=== PATIENT | male | born 1940 | race American Indian/Alaskan Native ===

== ENCOUNTER 2016-09-06 10:26 | Outpatient (CLI) | payer MEDICARE, BC ==
--- NOTE | 2016-09-06 14:14 | Ultrasound Report ---
ULTRASOUND RENAL BILATERAL HISTORY: Renal insufficiency. TECHNIQUE: transabdominal ultrasound with color Doppler interrogation. FINDINGS: The right kidney measures 9.7 x 4.5 x 5.0cm. Right renal cortex: 1.3cm. The left kidney measures 10.5 x 5.2 x 4.9cm. Left renal cortex: 1.4cm. The kidneys are normal size, contour and position. There is increased renal parenchymal echotexture bilaterally. Corticomedullary differentiation is preserved. A 2.7 x 2.4 cm simple cyst is noted in the inferior left kidney. No evidence for nephrolithiasis, mass, hydronephrosis or perinephric fluid. The views of the bladder and the region of the ureters appear normal. IMPRESSION: Renal parenchymal disease. 2.7 cm simple cyst in the left kidney.
== END 2016-09-06 10:27 | disposition home or self-care (01) ==
LOC: US 10:26
PROVIDERS: ATTEND Internal Medicine
DX: N28.1 Cyst of kidney, acquired (principal); N28.89 Other specified disorders of kidney and ureter
CPT/HCPCS: 76770

== ENCOUNTER 2017-06-03 17:30 | Outpatient (CLI) | payer MEDICARE ==
--- NOTE | 2017-06-03 20:19 | Cat Scan Report ---
FINAL REPORT PROCEDURE: CT ABDOMEN WO CON TECHNIQUE: Computerized axial tomography of the abdomen was performed without intravenous contrast. This study is performed without intravascular contrast material and its sensitivity for abdominal and pelvic pathology, including neoplasms, inflammation, abscess, free fluid, thrombosis, arterial dissection and infarction, is reduced compared with a contrast enhanced study. HISTORY: EVAL FOR RENAL COMPARISON: No prior studies are available for comparison. FINDINGS: Liver, spleen, pancreas and adrenal glands are within normal limits. Right kidney is unremarkable. A well-defined cystic lesion is noted involving the lower portion left kidney measuring 2.2 x 2.9 centimeters extending into the renal sinus. No renal calculi or hydronephrosis noted. Aorta is of normal caliber. There is no free fluid or free air. Gallbladder is unremarkable. Small bowel loops are within normal limits. Multiple colonic diverticula are noted without evidence of diverticulitis. Mild degree residual stool is noted. Appendix is normal. A small hiatal hernia is identified. A small fat containing uncomplicated supraumbilical hernia is identified measuring 2.3 centimeters. Moderate degree degenerative changes are noted involving the lumbar spine.. IMPRESSION: Impression No acute intra-abdominal pathology is identified as visualized on this noncontrast study. Mild degree residual stool Small hiatal hernia A well-defined cystic lesion of left kidney cannot be further evaluated on this noncontrast study.
== END 2017-06-03 17:31 | disposition home or self-care (01) ==
LOC: CT 17:30
PROVIDERS: ATTEND Internal Medicine Nephrology
DX: N28.1 Cyst of kidney, acquired (principal); K57.30 Diverticulosis of large intestine without perforation or abscess without bleeding; N28.89 Other specified disorders of kidney and ureter; K44.9 Diaphragmatic hernia without obstruction or gangrene; K42.9 Umbilical hernia without obstruction or gangrene; M47.896 Other spondylosis, lumbar region
CPT/HCPCS: 74150

== ENCOUNTER 2019-09-12 09:34 | Outpatient (CLI) | payer MEDICARE ==
--- NOTE | 2019-09-12 10:56 | Ultrasound Report ---
RENAL ULTRASOUND HISTORY: ABNORMAL RESULTS OF KIDNEY. Renal Insufficiency. COMPARISON: 09/06/2016 TECHNIQUE: Multiple real-time ultrasonographic grayscale images were obtained of the kidneys and urin marce bladder. FINDINGS: Right kidney: Moderate increased echogenicity of the kidney but no increase compared to the last exam . No hydronephrosis. Kidney measures 8.5 cm. Left kidney: Moderate increased echogenicity of the kidney but no increase compared to the last exam. A lower pole cyst measures 2.8 x 2.8 x 2.6 cm. Kidney measures 9.4 cm. Urinary bladder: No significant abnormality. Additional findings: None. IMPRESSION: 1. Bilateral medical renal disease. 2. No hydronephrosis. 3. A benign 2.8 cm left lower pole renal cyst. Signer Name: Rickie Mcmillan MD Signed: 09/12/2019 10:52 AM Workstation Name: [id number]
--- NOTE | 2019-09-12 10:59 | Ultrasound Report ---
URINARY BLADDER ULTRASOUND HISTORY: ABNORMAL KIDNEY FUNCTION COMPARISON: None. TECHNIQUE: Multiple real-time ultrasonographic grayscale images were obtained of the kidneys and urin marce bladder. FINDINGS: Urinary bladder: Small and otherwise unremarkable. Prevoid urinary bladder volume is 43.4 ml. Postv oid urinary bladder volume is 8.9 ml. Additional findings: None. IMPRESSION: 1. Small urinary bladder with minimal residual post void urine volume. Signer Name: Rickie Mcmillan MD Signed: 09/12/2019 10:55 AM Workstation Name: [id number]
== END 2019-09-12 09:35 | disposition home or self-care (01) ==
LOC: US 09:34
PROVIDERS: ATTEND Internal Medicine Nephrology
DX: N28.1 Cyst of kidney, acquired (principal); N28.89 Other specified disorders of kidney and ureter; R94.4 Abnormal results of kidney function studies
CPT/HCPCS: 76770; 76857